=== PATIENT | male | born 1935 | race Caucasian/White ===

== ENCOUNTER 2019-04-30 13:59 | Day surgery (SDC) | payer MEDICARE, MEDICAID ==
[~2019-04-30] VITALS: Ht 170.2 cm; Wt 89.5 kg
[2019-04-30] VITALS (9 sets, daily range): BP systolic 130–142; BP diastolic 71–83
[~2019-04-30 13:59] MED LIST: COMIN IH; DILT120C51 PO; FLO0.4C PO; FURO-150 PO; ISOS30TA9 PO; LOVA40TA2 PO; MELA5CAP PO; MONT10TA21 PO; MULT-1085 PO; NITR0.4T51 SL; PANT20TA2 PO; POLY17PO26 PO; PRIM50TA31 PO; RIVA10TA PO
[2019-04-30] MEDS ORDERED: diphenhydrAMINE 25mg capsule PO PRN (14:20)
[2019-04-30] MEDS ORDERED: normal saline 1,000 ML IV SCH (14:20)
[2019-04-30] MEDS ORDERED: LOVA10TA PO (15:10)
[2019-04-30] MEDS ORDERED: RIVA20TA PO (15:11)
[2019-04-30] MEDS ORDERED: ECHI350C PO (15:21)
[2019-04-30] MEDS ORDERED: ASCO500C15 PO (15:22)
[2019-04-30] MEDS ORDERED: CHOL50004 PO (15:24)
[2019-04-30] MEDS ORDERED: midazolam 2 mg/2 ml injection ONE (16:27)
[2019-04-30] MEDS ORDERED: fentaNYL/PF 50MCG/1 ML 2ML syringe ONE (16:27)
[2019-04-30] MEDS ORDERED: iohexol 350MG/ML 100ml bottle IV ONE (16:28)
[2019-04-30] MEDS ORDERED: LIDOcaine 1% (10mg/ml)w/preservative injection 20ml MDV ONE (16:28)
[2019-04-30] MEDS ORDERED: proCHLORperazine 10 MG/2 ml inj IV PRN (18:15)
[2019-04-30] MEDS ORDERED: OXAZEpam 15mg capsule PO PRN (18:15)
[2019-04-30] MEDS ORDERED: HYDROcodone/acetaminophen 5mg/325mg tablet PO PRN (18:15)
[2019-04-30] MEDS ORDERED: HYDROcodone/acetaminophen 10/325mg tab PO PRN (18:15)
[2019-04-30] MEDS ORDERED: ondansetron/PF 4mg/2ml inj IV PRN (18:15)
== END 2019-04-30 20:35 | disposition home or self-care (01) ==
LOC: SSTAY O 13:59
PROVIDERS: ATTEND Internal Medicine Interventional Cardiology
DX: I25.118 Atherosclerotic heart disease of native coronary artery with other forms of angina pectoris (principal); J44.9 Chronic obstructive pulmonary disease, unspecified; E11.9 Type 2 diabetes mellitus without complications; I11.0 Hypertensive heart disease with heart failure; I50.9 Heart failure, unspecified; I48.2 Chronic atrial fibrillation; E78.5 Hyperlipidemia, unspecified; Z95.0 Presence of cardiac pacemaker; Z79.899 Other long term (current) drug therapy; Z95.1 Presence of aortocoronary bypass graft; Z88.8 Allergy status to other drugs, medicaments and biological substances; Z88.5 Allergy status to narcotic agent; Z88.0 Allergy status to penicillin; Z87.891 Personal history of nicotine dependence
CPT/HCPCS: 93005; 93459; 99152; 99153; C1769; J1644; J2001; J2250; J3010; J7030; Q0163; Q9967; A4620; A6258

== ENCOUNTER 2022-01-25 13:29 | Outpatient (CLI) | payer OTHER ==
[~2022-01-25 13:29] MED LIST changes: +ASCO500C17 PO; +ATR0.5NEB NEB; +AZEL137S4 BOTHNARES; -COMIN IH; -DILT120C51 PO; +DILT180C66 PO; -FURO-150 PO; +FURO20TA4 PO; +ISOS30TA84 PO; -ISOS30TA9 PO; +LEVA0.6319 NEB; -LOVA40TA2 PO; -MELA5CAP PO; +META800T87 PO; -MULT-1085 PO; +PANT-47 PO; -PANT20TA2 PO; -POLY17PO26 PO; +POTA10CA44 PO; +PRIM50TA27 PO; -PRIM50TA31 PO; -RIVA10TA PO; +RIVA20TA PO; +ROFL500T7 PO; +ROSU5TAB PO
== END 2022-01-25 23:59 | disposition home or self-care (01) ==
LOC: RAD 13:29
PROVIDERS: ATTEND Chiropractor
DX: J44.9 Chronic obstructive pulmonary disease, unspecified (principal); M12.88 Other specific arthropathies, not elsewhere classified, other specified site
CPT/HCPCS: 71046